=== PATIENT | female | born 1990 | race Caucasian/White ===

== ENCOUNTER 2019-07-02 13:21 | Emergency (ER) | payer MEDICAID ==
[~2019-07-02] VITALS: Ht 152.4 cm; Wt 65.0 kg
--- NOTE | 2019-07-02 15:21 | NUR ---
PATIENT TO ER #2 WITH C/O INDIGESTION AND UPPER EPIGASTRIC PAIN SINCE TUESDAY. PATIENT HAS NO MEDICAL HX, BUT HAD LAST MONTH AND HAS HAD HEAVY BLEEDING ON AND OFF WITH CLOTS. PAIN IN UPPER EPIGASTRIC RADIATES TO BACK.
[2019-07-02] MEDS ORDERED: pantoprazole 40mg Tablet.DR PO STA (15:34)
[2019-07-02] MEDS ORDERED: LIDOcaine Viscous 15ml cup MM PRN (15:35)
[2019-07-02] MEDS ORDERED: mag hydrox/Alum hydrox/simeth 30ml oral suspension PO ONE (15:55)
[2019-07-02 16:07] LABS: BASOPHILS % (AUTO) 0.5 % (0-1); EOSINOPHILS # (AUTO) 0.1 X10'3 (0-0.9); EOSINOPHILS % (AUTO) 1.5 % (0-6); HEMATOCRIT 37.9 % (35.0-45.0); HEMOGLOBIN 13.2 g/dl (12.0-16.0); LYMPHOCYTES # (AUTO) 1.7 X10'3 (1.1-4.8); LYMPHOCYTES % (AUTO) 25.8 % (21-51); MEAN CORPUSCULAR HEMOGLOBIN 31.7 PG (27.0-31.0); MEAN CORPUSCULAR HGB CONC 34.8 g/dL (33.0-36.5); MEAN CORPUSCULAR VOLUME 90.9 FL (78-98); MEAN PLATELET VOLUME 8.9 FL (7.4-10.4); MONOCYTES # (AUTO) 0.4 X10'3 (0-0.9); MONOCYTES % (AUTO) 5.8 % (2-12); NEUTROPHILS # (AUTO) 4.3 X10'3 (1.8-7.7); NEUTROPHILS % (AUTO) 66.4 % (42-75); PLATELET COUNT 182 X10'3 (140-440); RED BLOOD COUNT 4.17 X10'6 (4.20-5.60); WHITE BLOOD COUNT 6.4 X10'3 (4.5-11.0)
[2019-07-02 16:21] LABS: ALANINE AMINOTRANSFERASE 29 U/L (12-78); ALBUMIN 3.9 G/DL (3.4-5.0); ALKALINE PHOSPHATASE 59 IU/L (46-116); ANION GAP 7 (8-16); ASPARTATE AMINO TRANSFERASE 10 U/L (10-37); BILIRUBIN,TOTAL 0.3 MG/DL (0.1-1.0); BLOOD UREA NITROGEN 12 MG/DL (7-18); CHLORIDE 105 MMOL/L (99-107); CREATININE 0.63 MG/DL (0.40-0.90); POTASSIUM 3.8 MMOL/L (3.5-5.1); SODIUM 140 MMOL/L (135-145); eGFR > 90 ML/MIN
[2019-07-02 16:23] LABS: GLUCOSE 99 MG/DL (70-104)
[2019-07-02 16:24] LABS: LIPASE 789 U/L (73-393); TROPONIN I < 0.04 NG/ML (0.0-0.05)
[2019-07-02 16:24] LABS: URINE HCG NEGATIVE (NEG)
[2019-07-02 16:27] LABS: CLARITY,URINE CLOUDY (Clear); COLOR,URINE STRAW (Yellow); GLUCOSE, URINE NEGATIVE (Neg); KETONES,URINE NEGATIVE (Neg); LEUKOCYTE ESTERASE ,URINE NEGATIVE (Neg); NITRITES, URINE NEGATIVE (Neg); OCCULT BLOOD,URINE MODERATE (Neg); PROTEIN,URINE NEGATIVE (Neg); UA COLLECTION TYPE CLN CATCH MIDSTREAM; UROBILINOGEN,URINE 0.2 E.U/dL (0.2-1.0)
[2019-07-02 16:34] LABS: AMORPHOUS PHOSPHATES 4+; MUCUS STRANDS MANY /LPF (Neg); SQUAMOUS EPITHELIAL CELL,UR MANY /LPF (FEW)
[2019-07-02 16:35] LABS: WBC CLUMPS,URINE FEW /HPF (NEGATIVE)
[2019-07-02 16:39] LABS: BACTERIA,URINE 2+ /HPF (Neg); RBC,URINE 0-2 /HPF (0-2)
--- NOTE | 2019-07-02 17:17 | NUR ---
Provider is completing the pelvic exam with assistance and nuclear medicine officer of female human services workerMaritza Carrillo.
[2019-07-02] MEDS ORDERED: iohexol 300mg/ml 100ml inj. ONE (17:34)
[2019-07-02 18:06] VITALS: BP 118/81
[2019-07-02] MEDS ORDERED: HYDR-3965 PO (19:18)
== END 2019-07-02 19:24 | disposition home or self-care (01) ==
LOC: ER 13:22
DX: K85.90 Acute pancreatitis without necrosis or infection, unspecified (principal); N93.9 Abnormal uterine and vaginal bleeding, unspecified; Z79.899 Other long term (current) drug therapy
CPT/HCPCS: 36415; 74177; 80053; 81001; 81025; 83690; 84484; 85025; 93005; 99284; Q9967